=== PATIENT | male | born 1955 | race Caucasian/White ===

== ENCOUNTER 2025-03-19 09:30 | Inpatient (IN) | payer OTHER, MEDICAID ==
[2025-03-19] MEDS ORDERED: Magnesium 2 GM/50 ML BAG (IN WATER) ONE (09:47)
[2025-03-19] MEDS ORDERED: LevoFLOXacin 750 mg/D5W 150 ml Premix Bag ONE (09:47)
[2025-03-19] MEDS ORDERED: Digoxin 0.5 MG/2 ML AMP ONE (09:47)
[2025-03-19] MEDS ORDERED: Rocuronium Bromide 10 MG/ML (10ML VIAL) ONE (09:52)
[2025-03-19] MEDS ORDERED: Etomidate 40 MG (20 mL) VIAL ONE (09:52)
[2025-03-19 09:58] LABS: #Basophils 0.05 10x3/uL (0.0-0.2); #Eosinophils Less than 0.03 10x3/uL (0.0-0.7); #Monocytes 1.09 10x3/uL (0.11-0.59); #Neutrophils 13.06 10x3/uL (1.40-6.50); %Basophils 0.3 % (0.0-1.0); %Eosinophils 0.0 % (0.0-10.0); %Lymphocytes 6.4 % (21.0-51.0); %Monocytes 6.9 % (0.0-10.0); %Neutrophils 83.0 % (42.0-75.0); Hematocrit 40.8 % (42.0-52.0); Hemoglobin 13.1 g/dL (14.0-18.0); Mean Corpuscular Hemoglobin 30.4 pg (27.0-31.0); Mean Corpuscular Volume 94.7 fL (78.0-98.0); Platelet Count 229 10x3/uL (130-400); Red Blood Cell (RBC) Count 4.31 mill/uL (4.70-6.10); White Blood Cell (WBC) Count 15.75 10x3/uL (4.8-10.8)
[2025-03-19] MEDS ORDERED: EPINEPHrine 1 MG/10 ML Abboject SYRINGE ONE (10:03)
[2025-03-19] MEDS ORDERED: KETAMINE 100 MG/ML (5ML VIAL) ONE (10:03)
[2025-03-19] MEDS ORDERED: Iopamidol-370 76% 500 ML MDV (1 ML CHARGE) ONE (10:13)
[2025-03-19 10:18] LABS: Lipase 58 U/L (8-78)
[2025-03-19 10:21] LABS: Acetaminophen Less than 10 mcg/mL (Less than 10); Salicylate Less than 8.0 mg/dL (Less than 8.0)
[2025-03-19 10:24] LABS: Troponin I 0.148 ng/mL (< 0.028)
[2025-03-19 10:26] LABS: ALT (SGPT) 2132 U/L (Less than 45); AST (SGOT) Greater than 4001 U/L (11-34); Albumin 3.2 g/dL (3.1-4.5); Alkaline Phosphatase 104 U/L (40-110); Anion Gap 22 mmol/L (10-20); BUN (Urea Nitrogen) 54 mg/dL (8.4-25.7); Bilirubin, Total 3.2 mg/dL (0.3-1.2); CK (CPK) 1446 U/L (30-200); Calc. Creatinine Clearance 0 mL/min (70-130); Calcium 8.5 mg/dL (7.8-10.44); Carbon Dioxide 10 mmol/L (23-31); Chloride 101 mmol/L (98-107); Globulin 3.0 g/dL (2.4-3.5); Glucose 106 mg/dL (80-115); Potassium 4.8 mmol/L (3.5-5.1); Sodium 128 mmol/L (136-145)
[2025-03-19 10:41] LABS: Analyzer IN Cardio ER; Base Excess (BEa) -16.3 mEq/L (-2.0 to +3.0); CO2 Tension 46.0 mmHg (35.0-45.0); Calcium, Ionized (arterial) 1.20 mmol/L (1.12-1.30); Hematocrit-ABG 45 % (42.0-52.0); Hemoglobin (Hb) 15.2 g/dL (14.0-18.0); O2 Tension (PaO2), arterial 195.5 mmHg (> 80.0); Potassium - ABG Lab 5.14 mmol/L (3.70-5.30)
[2025-03-19 10:48] LABS: Actual Bicarbonate (HCO3a) 13.5 mEq/L (22-28); pH, Arterial 7.084 (7.35-7.45)
[2025-03-19 10:49] LABS: ALV-art Gradient 460.000 mmHg (0-20); Puncture Site Left Radial artery
[2025-03-19] MEDS ORDERED: Sodium Bicarb 50 MEQ/50 ML Abboject 8.4% SYRINGE ONE ×2 (11:02→14:13)
[2025-03-19 11:57] LABS: Cocaine Metabolite Screen Negative (Negative); THC/Cannabinoid Screen PRELIM POSITIVE (Negative); Tricyclic Screen Negative (Negative)
[2025-03-19 12:01] LABS: CAUTI Indications for Culture Pelvic or flank pain; Glucose, Urine (Dipstick) Normal (Negative); Leukocyte Negative Leu/uL (Negative); Protein, Urine (Dipstick) 50 mg/dL (Neg-Trace); RBC/HPF 21-50 HPF (0-3); Specific Gravity, Urine 1.021 (1.002-1.036); WBC/HPF 0-3 HPF (0-3)
[2025-03-19 12:09] LABS: Bacteria/HPF 1+ HPF (None Seen); Sperm/HPF 4+ HPF (None Seen)
[2025-03-19 12:10] LABS: Urine Culture Reflex No No
[2025-03-19] MEDS ORDERED: Calcium Carbonate 500 MG ChewTAB PO PRN (14:02)
[2025-03-19] MEDS ORDERED: Ondansetron PF 4 MG/2 ML Vial IVP PRN (14:02)
[2025-03-19] MEDS ORDERED: Senokot S 8.6-50 MG TAB PO PRN (14:02)
[2025-03-19] MEDS ORDERED: Bisacodyl 10 MG SUPP PR PRN (14:02)
[2025-03-19] MEDS ORDERED: Ventilator Sedation Protocol 1 EACH FS SCH (14:07)
[2025-03-19 14:10] LABS: Analyzer IN Cardio ER; Base Excess (BEa) -20.7 mEq/L (-2.0 to +3.0); CO2 Tension 38.8 mmHg (35.0-45.0); Calcium, Ionized (arterial) 1.12 mmol/L (1.12-1.30); Hematocrit-ABG 42 % (42.0-52.0); Hemoglobin (Hb) 14.4 g/dL (14.0-18.0); O2 Tension (PaO2), arterial 129.0 mmHg (> 80.0); Potassium - ABG Lab 4.91 mmol/L (3.70-5.30)
[2025-03-19 14:14] LABS: Actual Bicarbonate (HCO3a) 9.7 mEq/L (22-28); pH, Arterial 7.017 (7.35-7.45)
[2025-03-19 14:15] LABS: ALV-art Gradient 250.300 mmHg (0-20); Puncture Site Left Brachial artery
[2025-03-19] MEDS ORDERED: Fentanyl BOLUS 100 ML IVPB PRN (15:15)
[2025-03-19] MEDS ORDERED: Propofol BOLUS 1,000 MG/100 ML VIAL IV PRN (15:15)
[2025-03-19] MEDS ORDERED: DISCONTINUE PREVIOUS NARCOTIC PAIN MEDICATIONS AND BENZODIAZEPINES FS SCH (15:15)
[2025-03-19 16:49] LABS: INR-International Normal Ratio 3.2; Prothrombin Time 32.6 sec (12.0-14.7)
[2025-03-19] MEDS: Vancomycin (BATCH) 2.5 GM in Premix 1 BAG IVPB SCH (16:52)
[2025-03-19] MEDS: LOKELMA 10 GM PACKET PER TUBE SCH (16:52)
[2025-03-19] MEDS: Lactulose 20 GM (30 mL) UDCUP PER TUBE SCH (17:01)
[2025-03-19 17:11] LABS: Hep A IgM AB NONREACTIVE (NonReactive); Hep A IgM S/CO 0.32 S/CO (0-0.79); Hep B Core IgM Index 0.08 S/CO (0-0.79); Hep B Surf Ag NONREACTIVE S/CO (NonReactive); Hep C IgG Ab Reflex HepC Qnt S/CO (NonReactive); Hep C Index 15.34 S/CO (0-0.79)
[2025-03-19] MEDS: Lactulose 10 GM/15 ML Oral Solution PR SCH (17:33)
[2025-03-19 17:49] LABS: ALT (SGPT) 2199 U/L (Less than 45); AST (SGOT) Greater than 4001 U/L (11-34); Albumin 2.8 g/dL (3.1-4.5); Alkaline Phosphatase 101 U/L (40-110); Anion Gap 29 mmol/L (10-20); BUN (Urea Nitrogen) 56 mg/dL (8.4-25.7); Bilirubin, Total 2.9 mg/dL (0.3-1.2); Calc. Creatinine Clearance 49 mL/min (70-130); Calcium 7.7 mg/dL (7.8-10.44); Carbon Dioxide 12 mmol/L (23-31); Chloride 97 mmol/L (98-107); Globulin 2.7 g/dL (2.4-3.5); Glucose 111 mg/dL (80-115); Potassium 5.1 mmol/L (3.5-5.1); Sodium 133 mmol/L (136-145)
[2025-03-19] MEDS: WATER IV SCH ×2 (17:52→19:50)
[2025-03-19] MEDS: ACETYLCYSTEINE IV SCH ×2 (17:52→19:50)
[2025-03-19] MEDS: DEXTROSE 5% IV SCH ×2 (17:52→19:50)
[2025-03-19] MEDS: Diltiazem HCl/D5W 125 MG in Premix 1 BAG IVPB SCH (19:19)
[2025-03-19] MEDS: Enoxaparin 100 MG (1 mL) SYRINGE SC SCH (20:35)
[2025-03-19 20:37] LABS: ALT (SGPT) 2254 U/L (Less than 45); AST (SGOT) Greater than 4001 U/L (11-34); Albumin 2.5 g/dL (3.1-4.5); Alkaline Phosphatase 88 U/L (40-110); Anion Gap 26 mmol/L (10-20); BUN (Urea Nitrogen) 52 mg/dL (8.4-25.7); Bilirubin, Total 2.4 mg/dL (0.3-1.2); Calc. Creatinine Clearance 50 mL/min (70-130); Calcium 7.6 mg/dL (7.8-10.44); Carbon Dioxide 14 mmol/L (23-31); Chloride 98 mmol/L (98-107); Globulin 2.7 g/dL (2.4-3.5); Glucose 181 mg/dL (80-115); Potassium 5.0 mmol/L (3.5-5.1); Sodium 133 mmol/L (136-145)
[2025-03-19] MEDS ORDERED: Famotidine/PF 20 mg/2ml Vial SLOW IVP SCH (21:00)
[2025-03-20] MEDS: DEXTROSE 5% IV SCH (00:03)
[2025-03-20] MEDS: WATER IV SCH (00:03)
[2025-03-20] MEDS: ACETYLCYSTEINE IV SCH (00:03)
[2025-03-20] MEDS: Albumin 25% 25 GM (100 mL) BOT IVPB SCH (00:13)
[2025-03-20] MEDS ORDERED: Dextrose 50% Abboject 50 ML SYRINGE SLOW IVP PRN (00:27)
[2025-03-20] MEDS ORDERED: Glucagon 1 MG/ML KIT IM PRN (00:27)
[2025-03-20 04:55] LABS: #Basophils 0.03 10x3/uL (0.0-0.2); #Eosinophils Less than 0.03 10x3/uL (0.0-0.7); #Monocytes 0.66 10x3/uL (0.11-0.59); #Neutrophils 12.78 10x3/uL (1.40-6.50); %Basophils 0.2 % (0.0-1.0); %Eosinophils 0.1 % (0.0-10.0); %Lymphocytes 7.4 % (21.0-51.0); %Monocytes 4.4 % (0.0-10.0); %Neutrophils 85.2 % (42.0-75.0); Hematocrit 36.9 % (42.0-52.0); Hemoglobin 12.4 g/dL (14.0-18.0); Mean Corpuscular Hemoglobin 31.0 pg (27.0-31.0); Mean Corpuscular Volume 92.3 fL (78.0-98.0); Platelet Count 228 10x3/uL (130-400); Red Blood Cell (RBC) Count 4.00 mill/uL (4.70-6.10); White Blood Cell (WBC) Count 15.00 10x3/uL (4.8-10.8)
[2025-03-20 05:13] LABS: Vancomycin, Trough 30.0 ug/mL
[2025-03-20 05:17] LABS: INR-International Normal Ratio 3.3; PTT 45.9 sec (22.9-36.1); Prothrombin Time 34.1 sec (12.0-14.7)
[2025-03-20 05:20] LABS: ALT (SGPT) 2492 U/L (Less than 45); AST (SGOT) Greater than 4001 U/L (11-34); Albumin 2.8 g/dL (3.1-4.5); Alkaline Phosphatase 96 U/L (40-110); Anion Gap 18 mmol/L (10-20); BUN (Urea Nitrogen) 57 mg/dL (8.4-25.7); Bilirubin, Total 2.5 mg/dL (0.3-1.2); CK (CPK) 766 U/L (30-200); Calc. Creatinine Clearance 56 mL/min (70-130); Calcium 7.7 mg/dL (7.8-10.44); Carbon Dioxide 23 mmol/L (23-31); Cardiac Risk 13.2 (Less than 4.5); Chloride 96 mmol/L (98-107); Cholesterol 66 mg/dl (< 200 Desired); Globulin 2.5 g/dL (2.4-3.5); Glucose 148 mg/dL (80-115); HDL Cholesterol 5 mg/dL (>60 Neg Risk); LDL Cholesterol, Calculated 47 mg/dL; Magnesium 2.0 mg/dL (1.6-2.6); Potassium 3.5 mmol/L (3.5-5.1); Sodium 133 mmol/L (136-145); Triglycerides 71 mg/dL (Less than 150)
[2025-03-20] MEDS: Pantoprazole 40 MG VIAL IVP SCH (08:09)
[2025-03-20 11:01] LABS: Actual Bicarbonate (HCO3a) 22.9 mEq/L (22-28); Base Excess (BEa) 1.9 mEq/L (-2.0 to +3.0); CO2 Tension 26.2 mmHg (35.0-45.0); Calcium, Ionized (arterial) 1.02 mmol/L (1.12-1.30); Hematocrit-ABG 39 % (42.0-52.0); Hemoglobin (Hb) 13.2 g/dL (14.0-18.0); O2 Tension (PaO2), arterial 75.6 mmHg (> 80.0); Potassium - ABG Lab 3.26 mmol/L (3.70-5.30); pH, Arterial 7.560 (7.35-7.45)
[2025-03-20 11:02] LABS: ALV-art Gradient 248.150 mmHg (0-20); Puncture Site Right Radial artery
[2025-03-20] MEDS: Lactulose 10 GM/15 ML Oral Solution PR SCH (13:15)
[2025-03-20] MEDS: Vancomycin 1 GM Premix Bag IVPB SCH (23:18)
[2025-03-21 01:36] LABS: #Basophils 0.04 10x3/uL (0.0-0.2); #Eosinophils 0.16 10x3/uL (0.0-0.7); #Monocytes 0.53 10x3/uL (0.11-0.59); #Neutrophils 8.48 10x3/uL (1.40-6.50); %Basophils 0.4 % (0.0-1.0); %Eosinophils 1.6 % (0.0-10.0); %Lymphocytes 8.1 % (21.0-51.0); %Monocytes 5.1 % (0.0-10.0); %Neutrophils 82.3 % (42.0-75.0); Hematocrit 37.7 % (42.0-52.0); Hemoglobin 13.0 g/dL (14.0-18.0); Mean Corpuscular Hemoglobin 31.4 pg (27.0-31.0); Mean Corpuscular Volume 91.1 fL (78.0-98.0); Platelet Count 220 10x3/uL (130-400); Red Blood Cell (RBC) Count 4.14 mill/uL (4.70-6.10); White Blood Cell (WBC) Count 10.31 10x3/uL (4.8-10.8)
[2025-03-21 01:49] LABS: Vancomycin, Random 28.3 ug/mL (See Comment)
[2025-03-21 01:50] LABS: Magnesium 2.1 mg/dL (1.6-2.6)
[2025-03-21 01:51] LABS: ALT (SGPT) 1863 U/L (Less than 45); AST (SGOT) 3411 U/L (11-34); Albumin 3.3 g/dL (3.1-4.5); Alkaline Phosphatase 95 U/L (40-110); Anion Gap 14 mmol/L (10-20); BUN (Urea Nitrogen) 42 mg/dL (8.4-25.7); Bilirubin, Total 3.8 mg/dL (0.3-1.2); Calc. Creatinine Clearance 76 mL/min (70-130); Calcium 7.8 mg/dL (7.8-10.44); Carbon Dioxide 30 mmol/L (23-31); Chloride 94 mmol/L (98-107); Globulin 2.2 g/dL (2.4-3.5); Glucose 90 mg/dL (80-115); Potassium 2.9 mmol/L (3.5-5.1); Sodium 135 mmol/L (136-145)
[2025-03-21] MEDS ORDERED: Electrolyte Replacement Protocol 1 EACH FS PRN (02:06)
[2025-03-21] MEDS: Potassium Chloride 40 MEQ in Premix 1 BAG IVPB SCH (03:13)
[2025-03-21 04:50] LABS: INR-International Normal Ratio 2.4; Prothrombin Time 26.0 sec (12.0-14.7)
[2025-03-21 04:51] LABS: PTT 45.9 sec (22.9-36.1)
[2025-03-21 07:10] LABS: Actual Bicarbonate (HCO3a) 27.6 mEq/L (22-28); Base Excess (BEa) 5.2 mEq/L (-2.0 to +3.0); CO2 Tension 33.9 mmHg (35.0-45.0); Calcium, Ionized (arterial) 1.07 mmol/L (1.12-1.30); Hematocrit-ABG 41 % (42.0-52.0); Hemoglobin (Hb) 14.1 g/dL (14.0-18.0); O2 Tension (PaO2), arterial 72.1 mmHg (> 80.0); Potassium - ABG Lab 4.06 mmol/L (3.70-5.30); pH, Arterial 7.529 (7.35-7.45)
[2025-03-21 07:11] LABS: ALV-art Gradient 242.025 mmHg (0-20); Puncture Site Right Brachial art
[2025-03-21 11:45] LABS: Potassium 3.4 mmol/L (3.5-5.1)
[2025-03-21] MEDS: Potassium Bicarbonate/Cit Ac 20 MEQ TAB PER TUBE SCH (15:09)
[2025-03-21] MEDS ORDERED: Albuterol 2.5 MG (3 mL) NEB EZPAP PRN (15:10)
[2025-03-21] MEDS: Albuterol 2.5 MG (3 mL) NEB EZPAP SCH (16:54)
[2025-03-21] MEDS: DC Sedation Protocol FS ONE (17:50)
[2025-03-21 19:32] LABS: #Basophils Less than 0.03 10x3/uL (0.0-0.2); #Eosinophils Less than 0.03 10x3/uL (0.0-0.7); #Monocytes 0.46 10x3/uL (0.11-0.59); #Neutrophils 7.87 10x3/uL (1.40-6.50); %Basophils 0.1 % (0.0-1.0); %Eosinophils 0.1 % (0.0-10.0); %Lymphocytes 4.8 % (21.0-51.0); %Monocytes 5.2 % (0.0-10.0); %Neutrophils 88.1 % (42.0-75.0); Hematocrit 38.2 % (42.0-52.0); Hemoglobin 12.6 g/dL (14.0-18.0); Mean Corpuscular Hemoglobin 30.4 pg (27.0-31.0); Mean Corpuscular Volume 92.0 fL (78.0-98.0); Platelet Count 193 10x3/uL (130-400); Red Blood Cell (RBC) Count 4.15 mill/uL (4.70-6.10); White Blood Cell (WBC) Count 8.93 10x3/uL (4.8-10.8)
[2025-03-21 19:50] LABS: ALT (SGPT) 1428 U/L (Less than 45); AST (SGOT) 1867 U/L (11-34); Albumin 2.9 g/dL (3.1-4.5); Alkaline Phosphatase 93 U/L (40-110); Anion Gap 13 mmol/L (10-20); BUN (Urea Nitrogen) 35 mg/dL (8.4-25.7); Bilirubin, Direct 3.1 mg/dL (0.1-0.3); Bilirubin, Total 4.9 mg/dL (0.3-1.2); Calc. Creatinine Clearance 111 mL/min (70-130); Calcium 7.9 mg/dL (7.8-10.44); Carbon Dioxide 28 mmol/L (23-31); Chloride 98 mmol/L (98-107); Globulin 2.3 g/dL (2.4-3.5); Glucose 124 mg/dL (80-115); Magnesium 1.9 mg/dL (1.6-2.6); Potassium 3.3 mmol/L (3.5-5.1); Sodium 136 mmol/L (136-145)
[2025-03-21] MEDS: Magnesium 2 GM/50 ML(in water) 2 GM in Premix 1 BAG IVPB SCH (20:51)
[2025-03-21] MEDS: D5 1/2 NS w/20 mEq KCL 1,000 ML IV SCH (20:52)
[2025-03-21] MEDS ORDERED: Phenol 177 ML BOT PO PRN (21:19)
[2025-03-21] MEDS: Potassium Chloride 20 MEQ in Premix 1 BAG IVPB SCH (21:42)
[2025-03-21 23:36] LABS: HCV RNA, log10 4.958 (.); Hep C PCR-Quant 90700 IU/mL (.)
[2025-03-22] MEDS ORDERED: Etomidate 40 MG (20 mL) VIAL ONE (01:45)
[2025-03-22] MEDS ORDERED: Rocuronium Bromide 10 MG/ML (10ML VIAL) ONE (01:45)
[2025-03-22] MEDS: Etomidate 40 MG (20 mL) VIAL IVP SCH (01:50)
[2025-03-22] MEDS ORDERED: DISCONTINUE PREVIOUS NARCOTIC PAIN MEDICATIONS AND BENZODIAZEPINES FS SCH (02:15)
[2025-03-22] MEDS ORDERED: Fentanyl BOLUS 100 ML IVPB PRN (02:15)
[2025-03-22] MEDS ORDERED: Propofol BOLUS 1,000 MG/100 ML VIAL IV PRN (02:15)
[2025-03-22] MEDS: Rocuronium Bromide 10 MG/ML (10ML VIAL) IVP SCH (02:19)
[2025-03-22] MEDS: NOREPINEPHRINE 8 MG/250 ML-D5W 250 ML ONE (02:23)
[2025-03-22] MEDS: Ventilator Sedation Protocol 1 EACH FS ONE (02:25)
[2025-03-22 03:06] LABS: #Basophils 0.03 10x3/uL (0.0-0.2); #Eosinophils 0.03 10x3/uL (0.0-0.7); #Monocytes 0.64 10x3/uL (0.11-0.59); #Neutrophils 7.36 10x3/uL (1.40-6.50); %Basophils 0.3 % (0.0-1.0); %Eosinophils 0.3 % (0.0-10.0); %Lymphocytes 6.6 % (21.0-51.0); %Monocytes 7.3 % (0.0-10.0); %Neutrophils 83.8 % (42.0-75.0); Hematocrit 42.6 % (42.0-52.0); Hemoglobin 13.9 g/dL (14.0-18.0); Mean Corpuscular Hemoglobin 30.4 pg (27.0-31.0); Mean Corpuscular Volume 93.2 fL (78.0-98.0); Platelet Count 200 10x3/uL (130-400); Red Blood Cell (RBC) Count 4.57 mill/uL (4.70-6.10); White Blood Cell (WBC) Count 8.79 10x3/uL (4.8-10.8)
[2025-03-22 03:21] LABS: INR-International Normal Ratio 1.8; PTT 39.5 sec (22.9-36.1); Prothrombin Time 20.9 sec (12.0-14.7)
[2025-03-22 03:32] LABS: Vancomycin, Random 22.4 ug/mL (See Comment)
[2025-03-22 03:35] LABS: ALT (SGPT) 1473 U/L (Less than 45); AST (SGOT) 1711 U/L (11-34); Albumin 3.3 g/dL (3.1-4.5); Alkaline Phosphatase 106 U/L (40-110); Anion Gap 16 mmol/L (10-20); BUN (Urea Nitrogen) 35 mg/dL (8.4-25.7); Bilirubin, Total 6.6 mg/dL (0.3-1.2); Calc. Creatinine Clearance 101 mL/min (70-130); Calcium 8.2 mg/dL (7.8-10.44); Carbon Dioxide 24 mmol/L (23-31); Chloride 97 mmol/L (98-107); Globulin 2.6 g/dL (2.4-3.5); Glucose 106 mg/dL (80-115); Magnesium 2.3 mg/dL (1.6-2.6); Potassium 3.8 mmol/L (3.5-5.1); Sodium 133 mmol/L (136-145)
[2025-03-22 07:48] LABS: Actual Bicarbonate (HCO3a) 24.4 mEq/L (22-28); Base Excess (BEa) 1.9 mEq/L (-2.0 to +3.0); CO2 Tension 32.0 mmHg (35.0-45.0); Calcium, Ionized (arterial) 1.07 mmol/L (1.12-1.30); Hematocrit-ABG 40 % (42.0-52.0); Hemoglobin (Hb) 13.5 g/dL (14.0-18.0); O2 Tension (PaO2), arterial 60.6 mmHg (> 80.0); Potassium - ABG Lab 3.65 mmol/L (3.70-5.30); pH, Arterial 7.500 (7.35-7.45)
[2025-03-22 07:52] LABS: ALV-art Gradient 184.600 mmHg (0-20); Puncture Site Right Brachial art
[2025-03-22] MEDS: Potassium Bicarbonate/Cit Ac 20 MEQ TAB PER TUBE SCH (07:57)
[2025-03-22] MEDS: D5 0.9% NS w/ 20 mEq KCl 1,000 ML IV SCH (07:59)
[2025-03-22] MEDS: Vancomycin 1 GM Premix Bag IVPB SCH (09:21)
[2025-03-22] MEDS: Folic Acid 1 MG TAB PO SCH (09:21)
[2025-03-22] MEDS: Multivit, Therapeutic 1 TAB PO SCH (09:21)
[2025-03-22] MEDS: QUEtiapine 25 MG TAB PO SCH ×2 (09:57→20:21)
[2025-03-22] MEDS: Enoxaparin 100 MG (1 mL) SYRINGE SC SCH ×2 (09:57→11:40)
[2025-03-22] MEDS: Furosemide 20 MG (2 mL) VIAL SLOW IVP SCH (11:47)
[2025-03-22] MEDS: Lactulose 20 GM (30 mL) UDCUP PO SCH (15:17)
[2025-03-23 04:20] LABS: #Basophils 0.05 10x3/uL (0.0-0.2); #Eosinophils 0.27 10x3/uL (0.0-0.7); #Monocytes 0.73 10x3/uL (0.11-0.59); #Neutrophils 6.07 10x3/uL (1.40-6.50); %Basophils 0.6 % (0.0-1.0); %Eosinophils 3.3 % (0.0-10.0); %Lymphocytes 12.2 % (21.0-51.0); %Monocytes 8.8 % (0.0-10.0); %Neutrophils 73.4 % (42.0-75.0); Hematocrit 39.4 % (42.0-52.0); Hemoglobin 12.9 g/dL (14.0-18.0); Mean Corpuscular Hemoglobin 30.3 pg (27.0-31.0); Mean Corpuscular Volume 92.5 fL (78.0-98.0); Platelet Count 176 10x3/uL (130-400); Red Blood Cell (RBC) Count 4.26 mill/uL (4.70-6.10); White Blood Cell (WBC) Count 8.27 10x3/uL (4.8-10.8)
[2025-03-23 04:32] LABS: Vancomycin, Random 22.4 ug/mL (See Comment)
[2025-03-23 04:35] LABS: ALT (SGPT) 990 U/L (Less than 45); AST (SGOT) 832 U/L (11-34); Albumin 2.6 g/dL (3.1-4.5); Alkaline Phosphatase 88 U/L (40-110); Anion Gap 12 mmol/L (10-20); BUN (Urea Nitrogen) 32 mg/dL (8.4-25.7); Bilirubin, Total 6.4 mg/dL (0.3-1.2); Calc. Creatinine Clearance 92 mL/min (70-130); Calcium 7.9 mg/dL (7.8-10.44); Carbon Dioxide 27 mmol/L (23-31); Chloride 99 mmol/L (98-107); Globulin 2.4 g/dL (2.4-3.5); Glucose 120 mg/dL (80-115); Magnesium 2.1 mg/dL (1.6-2.6); Potassium 3.0 mmol/L (3.5-5.1); Sodium 135 mmol/L (136-145)
[2025-03-23 04:45] LABS: INR-International Normal Ratio 1.5; Prothrombin Time 18.4 sec (12.0-14.7)
[2025-03-23 04:46] LABS: PTT 50.2 sec (22.9-36.1)
[2025-03-23] MEDS: Potassium Bicarbonate/Cit Ac 20 MEQ TAB PER TUBE SCH (09:27)
[2025-03-23] MEDS: QUEtiapine 25 MG TAB PO SCH (09:28)
[2025-03-23 20:23] LABS: Potassium 4.0 mmol/L (3.5-5.1)
[2025-03-24 04:37] LABS: INR-International Normal Ratio 1.4; Prothrombin Time 17.1 sec (12.0-14.7)
[2025-03-24 04:38] LABS: PTT 49.5 sec (22.9-36.1)
[2025-03-24 04:40] LABS: ALT (SGPT) 792 U/L (Less than 45); AST (SGOT) 543 U/L (11-34); Albumin 2.6 g/dL (3.1-4.5); Alkaline Phosphatase 97 U/L (40-110); Anion Gap 14 mmol/L (10-20); BUN (Urea Nitrogen) 26 mg/dL (8.4-25.7); Bilirubin, Total 4.3 mg/dL (0.3-1.2); Calc. Creatinine Clearance 93 mL/min (70-130); Calcium 8.2 mg/dL (7.8-10.44); Carbon Dioxide 28 mmol/L (23-31); Chloride 103 mmol/L (98-107); Globulin 2.9 g/dL (2.4-3.5); Glucose 121 mg/dL (80-115); Potassium 3.8 mmol/L (3.5-5.1); Sodium 141 mmol/L (136-145)
[2025-03-24] MEDS: NOREPINEPHRINE 8 MG/250 ML-D5W 250 ML IVPB SCH (08:29)
[2025-03-24] MEDS: PNEUMOC 20-VAL CONJ-DIP CRM/PF 0.5 ML SYRINGE IM ONE (10:08)
[2025-03-24] MEDS: Metoclopramide HCl 10 MG (2 mL) VIAL IVP SCH (15:41)
[2025-03-24] MEDS: Thiamine 100 MG TAB PO SCH (20:13)
[2025-03-25 04:53] LABS: INR-International Normal Ratio 1.3; PTT 50.1 sec (22.9-36.1); Prothrombin Time 16.6 sec (12.0-14.7)
[2025-03-25 05:00] LABS: ALT (SGPT) 598 U/L (Less than 45); AST (SGOT) 311 U/L (11-34); Albumin 2.6 g/dL (3.1-4.5); Alkaline Phosphatase 97 U/L (40-110); Anion Gap 14 mmol/L (10-20); BUN (Urea Nitrogen) 28 mg/dL (8.4-25.7); Bilirubin, Total 3.4 mg/dL (0.3-1.2); Calc. Creatinine Clearance 98 mL/min (70-130); Calcium 8.0 mg/dL (7.8-10.44); Carbon Dioxide 28 mmol/L (23-31); Chloride 103 mmol/L (98-107); Globulin 2.9 g/dL (2.4-3.5); Glucose 114 mg/dL (80-115); Potassium 3.6 mmol/L (3.5-5.1); Sodium 141 mmol/L (136-145)
[2025-03-25] MEDS: Furosemide 40 MG (4 mL) VIAL SLOW IVP SCH (10:16)
[2025-03-25] MEDS: DC Sedation Protocol FS ONE (18:19)
[2025-03-25 18:28] LABS: Actual Bicarbonate (HCO3a) 22.6 mEq/L (22-28); Base Excess (BEa) 1.9 mEq/L (-2.0 to +3.0); CO2 Tension 26.0 mmHg (35.0-45.0); Calcium, Ionized (arterial) 1.10 mmol/L (1.12-1.30); Hematocrit-ABG 44 % (42.0-52.0); Hemoglobin (Hb) 15.1 g/dL (14.0-18.0); O2 Tension (PaO2), arterial 60.9 mmHg (> 80.0); Potassium - ABG Lab 3.84 mmol/L (3.70-5.30); pH, Arterial 7.557 (7.35-7.45)
[2025-03-25 18:29] LABS: ALV-art Gradient 56.330 mmHg (0-20); Puncture Site Right Radial artery
[2025-03-26 09:11] LABS: Actual Bicarbonate (HCO3a) 26.6 mEq/L (22-28); Base Excess (BEa) 2.7 mEq/L (-2.0 to +3.0); CO2 Tension 38.3 mmHg (35.0-45.0); Calcium, Ionized (arterial) 1.13 mmol/L (1.12-1.30); Hematocrit-ABG 43 % (42.0-52.0); Hemoglobin (Hb) 14.7 g/dL (14.0-18.0); O2 Tension (PaO2), arterial 284.4 mmHg (> 80.0); Potassium - ABG Lab 4.02 mmol/L (3.70-5.30); pH, Arterial 7.459 (7.35-7.45)
[2025-03-26 09:12] LABS: ALV-art Gradient 304.925 mmHg (0-20); Puncture Site Right Radial artery
[2025-03-26] MEDS: Furosemide 40 MG (4 mL) VIAL SLOW IVP SCH (09:31)
[2025-03-26 09:43] LABS: #Basophils 0.08 10x3/uL (0.0-0.2); #Eosinophils 0.11 10x3/uL (0.0-0.7); #Monocytes 0.94 10x3/uL (0.11-0.59); #Neutrophils 6.84 10x3/uL (1.40-6.50); %Basophils 0.9 % (0.0-1.0); %Eosinophils 1.2 % (0.0-10.0); %Lymphocytes 11.0 % (21.0-51.0); %Monocytes 10.2 % (0.0-10.0); %Neutrophils 73.9 % (42.0-75.0); Hematocrit 41.8 % (42.0-52.0); Hemoglobin 14.1 g/dL (14.0-18.0); Mean Corpuscular Hemoglobin 30.2 pg (27.0-31.0); Mean Corpuscular Volume 89.5 fL (78.0-98.0); Platelet Count 179 10x3/uL (130-400); Red Blood Cell (RBC) Count 4.67 mill/uL (4.70-6.10); White Blood Cell (WBC) Count 9.25 10x3/uL (4.8-10.8)
[2025-03-26 09:57] LABS: Anion Gap 16 mmol/L (10-20); BUN (Urea Nitrogen) 33 mg/dL (8.4-25.7); Calc. Creatinine Clearance 107 mL/min (70-130); Calcium 8.5 mg/dL (7.8-10.44); Carbon Dioxide 27 mmol/L (23-31); Chloride 103 mmol/L (98-107); Glucose 109 mg/dL (80-115); Potassium 4.3 mmol/L (3.5-5.1); Sodium 142 mmol/L (136-145)
[2025-03-26] MEDS: Spironolactone 25 MG TAB PO SCH (10:11)
[2025-03-27 04:23] LABS: #Basophils 0.07 10x3/uL (0.0-0.2); #Eosinophils 0.10 10x3/uL (0.0-0.7); #Monocytes 1.15 10x3/uL (0.11-0.59); #Neutrophils 7.41 10x3/uL (1.40-6.50); %Basophils 0.7 % (0.0-1.0); %Eosinophils 1.0 % (0.0-10.0); %Lymphocytes 12.4 % (21.0-51.0); %Monocytes 11.2 % (0.0-10.0); %Neutrophils 72.0 % (42.0-75.0); Hematocrit 42.4 % (42.0-52.0); Hemoglobin 13.5 g/dL (14.0-18.0); Mean Corpuscular Hemoglobin 29.2 pg (27.0-31.0); Mean Corpuscular Volume 91.8 fL (78.0-98.0); Platelet Count 216 10x3/uL (130-400); Red Blood Cell (RBC) Count 4.62 mill/uL (4.70-6.10); White Blood Cell (WBC) Count 10.29 10x3/uL (4.8-10.8)
[2025-03-27 04:49] LABS: Anion Gap 18 mmol/L (10-20); BUN (Urea Nitrogen) 35 mg/dL (8.4-25.7); Calc. Creatinine Clearance 88 mL/min (70-130); Calcium 8.4 mg/dL (7.8-10.44); Carbon Dioxide 27 mmol/L (23-31); Chloride 102 mmol/L (98-107); Glucose 101 mg/dL (80-115); Potassium 3.7 mmol/L (3.5-5.1); Sodium 143 mmol/L (136-145)
[2025-03-27] MEDS: Spironolactone 25 MG TAB PO SCH (09:56)
[2025-03-27] MEDS ORDERED: Diltiazem HCl/D5W 125 MG in Premix 1 BAG IVPB SCH (17:15)
[2025-03-27] MEDS: dilTIAZem 25 MG/5 ML VIAL SLOW IVP SCH (17:42)
[2025-03-27] MEDS: Diltiazem HCl/D5W 125 MG in Premix 1 BAG IVPB SCH (17:43)
[2025-03-27] MEDS: dilTIAZem 25 MG/5 ML VIAL ONE (17:44)
[2025-03-27 18:47] LABS: Magnesium 1.9 mg/dL (1.6-2.6)
[2025-03-27] MEDS: Magnesium 2 GM/50 ML(in water) 2 GM in Premix 1 BAG IVPB SCH (20:11)
[2025-03-28 04:21] LABS: #Basophils 0.09 10x3/uL (0.0-0.2); #Eosinophils 0.25 10x3/uL (0.0-0.7); #Monocytes 1.14 10x3/uL (0.11-0.59); #Neutrophils 7.79 10x3/uL (1.40-6.50); %Basophils 0.8 % (0.0-1.0); %Eosinophils 2.3 % (0.0-10.0); %Lymphocytes 12.1 % (21.0-51.0); %Monocytes 10.4 % (0.0-10.0); %Neutrophils 71.1 % (42.0-75.0); Hematocrit 39.4 % (42.0-52.0); Hemoglobin 12.5 g/dL (14.0-18.0); Mean Corpuscular Hemoglobin 29.8 pg (27.0-31.0); Mean Corpuscular Volume 94.0 fL (78.0-98.0); Platelet Count 207 10x3/uL (130-400); Red Blood Cell (RBC) Count 4.19 mill/uL (4.70-6.10); White Blood Cell (WBC) Count 10.96 10x3/uL (4.8-10.8)
[2025-03-28 04:39] LABS: ALT (SGPT) 263 U/L (Less than 45); AST (SGOT) 119 U/L (11-34); Albumin 2.6 g/dL (3.1-4.5); Alkaline Phosphatase 78 U/L (40-110); Anion Gap 15 mmol/L (10-20); BUN (Urea Nitrogen) 27 mg/dL (8.4-25.7); Bilirubin, Total 2.7 mg/dL (0.3-1.2); Calc. Creatinine Clearance 100 mL/min (70-130); Calcium 7.9 mg/dL (7.8-10.44); Carbon Dioxide 26 mmol/L (23-31); Chloride 105 mmol/L (98-107); Globulin 2.9 g/dL (2.4-3.5); Glucose 98 mg/dL (80-115); Potassium 3.4 mmol/L (3.5-5.1); Sodium 143 mmol/L (136-145)
[2025-03-28] MEDS: Potassium Chloride 20 MEQ in Premix 1 BAG IVPB SCH ×2 (08:58→21:11)
[2025-03-28] MEDS: Digoxin 0.5 MG/2 ML AMP SLOW IVP SCH (09:47)
[2025-03-28 16:47] LABS: Potassium 3.5 mmol/L (3.5-5.1)
[2025-03-28] MEDS: Acetaminophen 500 MG TAB PO PRN (18:08)
[2025-03-28 18:22] VITALS: BMI 27.9
[2025-03-28] MEDS: Potassium Bicarbonate/Cit Ac 20 MEQ TAB PER TUBE SCH (18:33)
[2025-03-29 04:35] LABS: #Basophils 0.06 10x3/uL (0.0-0.2); #Eosinophils 0.10 10x3/uL (0.0-0.7); #Monocytes 1.13 10x3/uL (0.11-0.59); #Neutrophils 10.29 10x3/uL (1.40-6.50); %Basophils 0.5 % (0.0-1.0); %Eosinophils 0.8 % (0.0-10.0); %Lymphocytes 8.8 % (21.0-51.0); %Monocytes 8.7 % (0.0-10.0); %Neutrophils 78.9 % (42.0-75.0); Hematocrit 43.5 % (42.0-52.0); Hemoglobin 13.8 g/dL (14.0-18.0); Mean Corpuscular Hemoglobin 29.9 pg (27.0-31.0); Mean Corpuscular Volume 94.2 fL (78.0-98.0); Platelet Count 267 10x3/uL (130-400); Red Blood Cell (RBC) Count 4.62 mill/uL (4.70-6.10); White Blood Cell (WBC) Count 13.02 10x3/uL (4.8-10.8)
[2025-03-29 05:18] LABS: Anion Gap 16 mmol/L (10-20); BUN (Urea Nitrogen) 17 mg/dL (8.4-25.7); Calc. Creatinine Clearance 147 mL/min (70-130); Calcium 8.1 mg/dL (7.8-10.44); Carbon Dioxide 21 mmol/L (23-31); Chloride 106 mmol/L (98-107); Glucose 115 mg/dL (80-115); Potassium 3.7 mmol/L (3.5-5.1); Sodium 139 mmol/L (136-145)
[2025-03-29] MEDS: Metoprolol Tartrate 5 MG (5 mL) VIAL IVP SCH (07:24)
[2025-03-29] MEDS: Digoxin 0.5 MG/2 ML AMP SLOW IVP SCH (07:42)
[2025-03-29] MEDS: Apixaban 5 MG TAB PO SCH (07:54)
[2025-03-29] MEDS: Furosemide 20 MG (2 mL) VIAL SLOW IVP SCH (09:30)
[2025-03-30 04:20] LABS: #Basophils 0.06 10x3/uL (0.0-0.2); #Eosinophils 0.07 10x3/uL (0.0-0.7); #Monocytes 0.98 10x3/uL (0.11-0.59); #Neutrophils 9.53 10x3/uL (1.40-6.50); %Basophils 0.5 % (0.0-1.0); %Eosinophils 0.6 % (0.0-10.0); %Lymphocytes 8.2 % (21.0-51.0); %Monocytes 8.2 % (0.0-10.0); %Neutrophils 80.1 % (42.0-75.0); Hematocrit 43.3 % (42.0-52.0); Hemoglobin 14.1 g/dL (14.0-18.0); Mean Corpuscular Hemoglobin 29.8 pg (27.0-31.0); Mean Corpuscular Volume 91.5 fL (78.0-98.0); Platelet Count 276 10x3/uL (130-400); Red Blood Cell (RBC) Count 4.73 mill/uL (4.70-6.10); White Blood Cell (WBC) Count 11.91 10x3/uL (4.8-10.8)
[2025-03-30 04:56] LABS: Digoxin 0.47 ng/mL (0.8-2.0)
[2025-03-30 05:01] LABS: ALT (SGPT) 189 U/L (Less than 45); AST (SGOT) 71 U/L (11-34); Albumin 3.0 g/dL (3.1-4.5); Alkaline Phosphatase 95 U/L (40-110); Anion Gap 18 mmol/L (10-20); BUN (Urea Nitrogen) 14 mg/dL (8.4-25.7); Bilirubin, Total 3.3 mg/dL (0.3-1.2); Calc. Creatinine Clearance 143 mL/min (70-130); Calcium 8.5 mg/dL (7.8-10.44); Carbon Dioxide 20 mmol/L (23-31); Chloride 106 mmol/L (98-107); Globulin 3.3 g/dL (2.4-3.5); Glucose 85 mg/dL (80-115); Potassium 3.9 mmol/L (3.5-5.1); Sodium 140 mmol/L (136-145)
[2025-03-30] MEDS: Spironolactone 25 MG TAB PO SCH (08:43)
[2025-03-30] MEDS: Pantoprazole 40 MG DR.TAB PO SCH (08:45)
[2025-03-30] MEDS: dilTIAZem 30 MG TAB PO PRN (12:55)
[2025-03-30] MEDS: dilTIAZem 30 MG TAB PO SCH (17:45)
[2025-03-30] MEDS: diphenhydrAMINE 50 MG/ML VIAL IVP SCH (23:52)
[2025-03-31 04:49] LABS: #Basophils 0.07 10x3/uL (0.0-0.2); #Eosinophils 0.19 10x3/uL (0.0-0.7); #Monocytes 0.85 10x3/uL (0.11-0.59); #Neutrophils 6.88 10x3/uL (1.40-6.50); %Basophils 0.8 % (0.0-1.0); %Eosinophils 2.1 % (0.0-10.0); %Lymphocytes 11.2 % (21.0-51.0); %Monocytes 9.2 % (0.0-10.0); %Neutrophils 74.5 % (42.0-75.0); Hematocrit 40.4 % (42.0-52.0); Hemoglobin 13.1 g/dL (14.0-18.0); Mean Corpuscular Hemoglobin 29.8 pg (27.0-31.0); Mean Corpuscular Volume 91.8 fL (78.0-98.0); Platelet Count 264 10x3/uL (130-400); Red Blood Cell (RBC) Count 4.40 mill/uL (4.70-6.10); White Blood Cell (WBC) Count 9.22 10x3/uL (4.8-10.8)
[2025-03-31 05:15] LABS: ALT (SGPT) 136 U/L (Less than 45); AST (SGOT) 59 U/L (11-34); Albumin 2.6 g/dL (3.1-4.5); Alkaline Phosphatase 73 U/L (40-110); Anion Gap 16 mmol/L (10-20); BUN (Urea Nitrogen) 20 mg/dL (8.4-25.7); Bilirubin, Total 2.5 mg/dL (0.3-1.2); Calc. Creatinine Clearance 156 mL/min (70-130); Calcium 8.2 mg/dL (7.8-10.44); Carbon Dioxide 20 mmol/L (23-31); Chloride 108 mmol/L (98-107); Globulin 3.0 g/dL (2.4-3.5); Glucose 79 mg/dL (80-115); Magnesium 1.8 mg/dL (1.6-2.6); Potassium 3.5 mmol/L (3.5-5.1); Sodium 140 mmol/L (136-145)
[2025-03-31 05:36] VITALS: BMI 24.5
[2025-03-31] MEDS: Magnesium 2 GM/50 ML(in water) 2 GM in Premix 1 BAG IVPB SCH (05:58)
[2025-03-31] MEDS: QUEtiapine 25 MG TAB PO SCH (10:03)
[2025-03-31] MEDS: dilTIAZem 30 MG TAB PO SCH (15:06)
[2025-04-01 05:07] LABS: Digoxin 0.25 ng/mL (0.8-2.0)
[2025-04-01] MEDS: Digoxin 0.125 MG TAB PO SCH (08:40)
[2025-04-01] MEDS: dilTIAZem 30 MG TAB PO SCH (17:34)
[2025-04-02 15:10] VITALS: BP 132/81; TEMP 98.1
== END 2025-04-02 18:28 | disposition home or self-care (01) | DRG 870 ==
LOC: ERS 09:30 → SUATTDRO 09:30 → CCU 14:04 → IMCU/EMU 03-28 12:57 → 2NO 04-01 18:25
PROVIDERS: ADMIT Internal Medicine; ATTEND Hospitalist
PROC: 0DH67UZ Insertion of Feeding Device into Stomach, Via Natural or Artificial Opening (ICD-10-PCS; principal; 2025-03-19)
PROC: 4A13XR1 Monitoring of Arterial Saturation, Peripheral, External Approach (ICD-10-PCS; 2025-03-19)
PROC: 0BH17EZ Insertion of Endotracheal Airway into Trachea, Via Natural or Artificial Opening (ICD-10-PCS; 2025-03-19)
PROC: 5A1955Z Respiratory Ventilation, Greater than 96 Consecutive Hours (ICD-10-PCS; 2025-03-19)
PROC: 3E033XZ Introduction of Vasopressor into Peripheral Vein, Percutaneous Approach (ICD-10-PCS; 2025-03-19)
PROC: 3E03329 Introduction of Other Anti-infective into Peripheral Vein, Percutaneous Approach (ICD-10-PCS; 2025-03-19)
PROC: 30233J1 Transfusion of Nonautologous Serum Albumin into Peripheral Vein, Percutaneous Approach (ICD-10-PCS; 2025-03-19)
PROC: 0T9B70Z Drainage of Bladder with Drainage Device, Via Natural or Artificial Opening (ICD-10-PCS; 2025-03-20)
PROC: 5A0935A Assistance with Respiratory Ventilation, Less than 24 Consecutive Hours, High Flow/Velocity Cannula (ICD-10-PCS; 2025-03-25)
DX: A41.9 Sepsis, unspecified organism (principal); G92.8 Other toxic encephalopathy; J96.01 Acute respiratory failure with hypoxia; J96.02 Acute respiratory failure with hypercapnia; K72.00 Acute and subacute hepatic failure without coma; I50.21 Acute systolic (congestive) heart failure; R65.21 Severe sepsis with septic shock; J18.9 Pneumonia, unspecified organism; M62.82 Rhabdomyolysis; E87.20 Acidosis, unspecified; N17.9 Acute kidney failure, unspecified; E87.1 Hypo-osmolality and hyponatremia; N12 Tubulo-interstitial nephritis, not specified as acute or chronic; I50.20 Unspecified systolic (congestive) heart failure; E87.3 Alkalosis; I42.9 Cardiomyopathy, unspecified; N39.0 Urinary tract infection, site not specified; I48.91 Unspecified atrial fibrillation; F19.10 Other psychoactive substance abuse, uncomplicated; J44.9 Chronic obstructive pulmonary disease, unspecified; R79.89 Other specified abnormal findings of blood chemistry; N18.9 Chronic kidney disease, unspecified; F10.90 Alcohol use, unspecified, uncomplicated; E87.5 Hyperkalemia; E87.6 Hypokalemia; R31.21 Asymptomatic microscopic hematuria
CPT/HCPCS: 31500; 36415; 36416; 36556; 36600; 71045; 71275; 74177; 76705; 80048; 80053; 80061; 80074; 80162; 80202; 80306; 80307; 81001; 82140; 82248; 82550; 82805; 83036; 83605; 83690; 83735; 83880; 84100; 84145; 84443; 85025; 85610; 85730; 87086; 87522; 93005; 93306; 94002; 94003; 94640; 94660; 96365; 96366; 96374; 96375; 96376; 99292; J0132; J0165; J1160; J1200; J1630; J1644; J1650; J1815; J1940; J1956; J2060; J2250; J2470; J2543; J2704; J2765; J3010; J3373; J3411; J3475; J3480; J3486; J7030; J7050; J7070; J7611; J7620; J7626; P9047; Q9967

== ENCOUNTER 2025-04-03 11:33 | Emergency (ER) | payer OTHER, MEDICAID ==
[2025-04-03 12:08] LABS: #Basophils 0.08 10x3/uL (0.0-0.2); #Eosinophils 0.18 10x3/uL (0.0-0.7); #Monocytes 0.91 10x3/uL (0.11-0.59); #Neutrophils 6.39 10x3/uL (1.40-6.50); %Basophils 0.9 % (0.0-1.0); %Eosinophils 2.1 % (0.0-10.0); %Lymphocytes 11.4 % (21.0-51.0); %Monocytes 10.4 % (0.0-10.0); %Neutrophils 73.3 % (42.0-75.0); Hematocrit 43.3 % (42.0-52.0); Hemoglobin 14.2 g/dL (14.0-18.0); Mean Corpuscular Hemoglobin 30.1 pg (27.0-31.0); Mean Corpuscular Volume 91.7 fL (78.0-98.0); Platelet Count 323 10x3/uL (130-400); Red Blood Cell (RBC) Count 4.72 mill/uL (4.70-6.10); White Blood Cell (WBC) Count 8.72 10x3/uL (4.8-10.8)
[2025-04-03 12:28] LABS: ALT (SGPT) 116 U/L (Less than 45); AST (SGOT) 80 U/L (11-34); Albumin 3.4 g/dL (3.1-4.5); Alkaline Phosphatase 102 U/L (40-110); Anion Gap 16 mmol/L (10-20); BUN (Urea Nitrogen) 23 mg/dL (8.4-25.7); Bilirubin, Total 1.9 mg/dL (0.3-1.2); Calc. Creatinine Clearance 0 mL/min (70-130); Calcium 9.2 mg/dL (7.8-10.44); Carbon Dioxide 21 mmol/L (23-31); Chloride 105 mmol/L (98-107); Globulin 3.7 g/dL (2.4-3.5); Glucose 98 mg/dL (80-115); Potassium 4.4 mmol/L (3.5-5.1); Sodium 138 mmol/L (136-145)
[2025-04-03] MEDS ORDERED: Digoxin 0.125 MG TAB ONE (12:38)
[2025-04-03] MEDS ORDERED: Acetaminophen 500 MG TAB ONE (12:38)
[2025-04-03] MEDS ORDERED: Folic Acid 1 MG TAB ONE (12:38)
[2025-04-03 12:39] LABS: Bacteria/HPF None Seen HPF (None Seen); CAUTI Indications for Culture Dysuria,urgency,freq; Glucose, Urine (Dipstick) 500 mg/dL (Negative); Leukocyte Negative Leu/uL (Negative); Protein, Urine (Dipstick) Negative (Neg-Trace); RBC/HPF 0-3 HPF (0-3); Specific Gravity, Urine 1.013 (1.002-1.036); WBC/HPF 0-3 HPF (0-3)
[2025-04-03] MEDS ORDERED: Thiamine 100 MG TAB ONE (12:39)
[2025-04-03] MEDS ORDERED: Apixaban 5 MG TAB ONE (12:39)
[2025-04-03 12:40] LABS: Urine Culture Reflex No No
[2025-04-03 12:52] LABS: Magnesium 1.7 mg/dL (1.6-2.6)
== END 2025-04-03 17:00 | disposition home or self-care (01) ==
LOC: ERS 11:33
DX: I48.91 Unspecified atrial fibrillation (principal); F17.210 Nicotine dependence, cigarettes, uncomplicated
CPT/HCPCS: 71045; 80053; 81001; 83735; 84484; 85025; 87086; 93005

== ENCOUNTER 2025-04-07 00:55 | Observation (INO) | payer OTHER, MEDICAID ==
[2025-04-07 01:33] LABS: #Basophils 0.17 10x3/uL (0.0-0.2); #Eosinophils 0.32 10x3/uL (0.0-0.7); #Monocytes 1.24 10x3/uL (0.11-0.59); #Neutrophils 4.46 10x3/uL (1.40-6.50); %Basophils 2.1 % (0.0-1.0); %Eosinophils 3.9 % (0.0-10.0); %Lymphocytes 20.5 % (21.0-51.0); %Monocytes 15.0 % (0.0-10.0); %Neutrophils 53.8 % (42.0-75.0); Hematocrit 39.9 % (42.0-52.0); Hemoglobin 12.8 g/dL (14.0-18.0); Mean Corpuscular Hemoglobin 30.1 pg (27.0-31.0); Mean Corpuscular Volume 93.9 fL (78.0-98.0); Platelet Count 411 10x3/uL (130-400); Red Blood Cell (RBC) Count 4.25 mill/uL (4.70-6.10); White Blood Cell (WBC) Count 8.28 10x3/uL (4.8-10.8)
[2025-04-07 03:19] LABS: ALT (SGPT) 78 U/L (Less than 45); AST (SGOT) 78 U/L (11-34); Albumin 3.3 g/dL (3.1-4.5); Alkaline Phosphatase 98 U/L (40-110); Anion Gap 15 mmol/L (10-20); BUN (Urea Nitrogen) 22 mg/dL (8.4-25.7); Bilirubin, Total 1.2 mg/dL (0.3-1.2); Calc. Creatinine Clearance 0 mL/min (70-130); Calcium 8.6 mg/dL (7.8-10.44); Carbon Dioxide 19 mmol/L (23-31); Chloride 105 mmol/L (98-107); Globulin 3.5 g/dL (2.4-3.5); Glucose 104 mg/dL (80-115); Potassium 3.7 mmol/L (3.5-5.1); Sodium 135 mmol/L (136-145)
[2025-04-07] MEDS ORDERED: Ketorolac Tromethamine 30 MG (1 mL) VIAL ONE (03:48)
[2025-04-07 08:46] VITALS: BMI 23.5
[2025-04-07] MEDS ORDERED: Nitroglycerin 0.4 MG TAB (25 Tab Bottle) SL PRN (10:00)
[2025-04-07] MEDS ORDERED: Acetaminophen 325 MG TAB PO PRN (10:01)
[2025-04-07] MEDS ORDERED: Bisacodyl 10 MG SUPP PR PRN (10:01)
[2025-04-07] MEDS ORDERED: Ondansetron PF 4 MG/2 ML Vial IVP PRN (10:01)
[2025-04-07] MEDS ORDERED: Calcium Carbonate 500 MG ChewTAB PO PRN (10:01)
[2025-04-07] MEDS ORDERED: Senokot S 8.6-50 MG TAB PO PRN (10:01)
[2025-04-07] MEDS ORDERED: Melatonin 3 MG TAB PO PRN (10:01)
[2025-04-07 10:46] VITALS: BP 115/74
[2025-04-07] MEDS: Digoxin 0.125 MG TAB PO SCH (10:47)
[2025-04-07] MEDS: Apixaban 5 MG TAB PO SCH (10:48)
[2025-04-07] MEDS: Thiamine 100 MG TAB PO SCH (10:48)
[2025-04-07] MEDS: Spironolactone 25 MG TAB PO SCH (10:49)
[2025-04-07 10:56] LABS: INR-International Normal Ratio 1.1; Prothrombin Time 14.5 sec (12.0-14.7)
[2025-04-07 10:57] LABS: PTT 31.4 sec (22.9-36.1)
[2025-04-07 10:59] LABS: D-Dimer Test 1.31 mcg/mL (0.27-0.43)
[2025-04-07 11:05] LABS: Digoxin 0.26 ng/mL (0.8-2.0)
[2025-04-07 11:22] VITALS: TEMP 97.7
[2025-04-07] MEDS ORDERED: Albuterol 2.5 MG (3 mL) NEB NEB PRN (12:38)
[2025-04-07 12:41] LABS: Cocaine Metabolite Screen Negative (Negative); THC/Cannabinoid Screen PRELIM POSITIVE (Negative); Tricyclic Screen Negative (Negative)
[2025-04-07] MEDS ORDERED: Pantoprazole 40 MG DR.TAB PO SCH (14:00)
[2025-04-07] MEDS ORDERED: Iopamidol-370 76% 500 ML MDV (1 ML CHARGE) ONE (15:54)
[2025-04-07] MEDS ORDERED: Enoxaparin 80 MG (0.8 mL) SYRINGE SC SCH ×2 (21:00)
[2025-04-07] MEDS ORDERED: Enoxaparin 60 MG (0.6 mL) SYRINGE SC SCH (21:00)
[2025-04-07] MEDS ORDERED: Apixaban 5 MG TAB PO SCH (21:00)
[2025-04-08] MEDS ORDERED: Spironolactone 25 MG TAB PO SCH (08:00)
[2025-04-08] MEDS ORDERED: Folic Acid 1 MG TAB PO SCH (09:00)
[2025-04-08] MEDS ORDERED: Multivit, Therapeutic 1 TAB PO SCH (09:00)
[2025-04-08] MEDS ORDERED: Digoxin 0.125 MG TAB PO SCH (09:00)
[2025-04-08] MEDS ORDERED: Pantoprazole 40 MG DR.TAB PO SCH (09:00)
== END 2025-04-07 16:35 | disposition left against medical advice (07) ==
LOC: ERS 00:55 → 2NO 06:08
PROVIDERS: ADMIT Internal Medicine; ATTEND Internal Medicine
DX: R07.89 Other chest pain (principal); R06.02 Shortness of breath; I48.0 Paroxysmal atrial fibrillation; I11.0 Hypertensive heart disease with heart failure; I50.20 Unspecified systolic (congestive) heart failure; F15.10 Other stimulant abuse, uncomplicated; Z79.01 Long term (current) use of anticoagulants; Z79.899 Other long term (current) drug therapy
CPT/HCPCS: 71045; 71275; 80053; 80162; 80306; 80307; 83880; 84484 ×2; 85025; 85379; 85610; 85730; 93005; 94760; 96374; 99285; G0378 ×2; J1885; Q9967; 36415

== ENCOUNTER 2025-04-10 23:35 | Observation (INO) | payer OTHER, MEDICAID ==
[2025-04-11 00:56] LABS: #Basophils 0.09 10x3/uL (0.0-0.2); #Eosinophils 0.35 10x3/uL (0.0-0.7); #Monocytes 0.93 10x3/uL (0.11-0.59); #Neutrophils 5.09 10x3/uL (1.40-6.50); %Basophils 1.1 % (0.0-1.0); %Eosinophils 4.2 % (0.0-10.0); %Lymphocytes 18.5 % (21.0-51.0); %Monocytes 11.2 % (0.0-10.0); %Neutrophils 61.6 % (42.0-75.0); Hematocrit 39.5 % (42.0-52.0); Hemoglobin 12.9 g/dL (14.0-18.0); Mean Corpuscular Hemoglobin 30.3 pg (27.0-31.0); Mean Corpuscular Volume 92.7 fL (78.0-98.0); Platelet Count 361 10x3/uL (130-400); Red Blood Cell (RBC) Count 4.26 mill/uL (4.70-6.10); White Blood Cell (WBC) Count 8.27 10x3/uL (4.8-10.8)
[2025-04-11 01:16] LABS: ALT (SGPT) 48 U/L (Less than 45); AST (SGOT) 52 U/L (11-34); Albumin 3.3 g/dL (3.1-4.5); Alkaline Phosphatase 99 U/L (40-110); Anion Gap 14 mmol/L (10-20); BUN (Urea Nitrogen) 15 mg/dL (8.4-25.7); Bilirubin, Total 1.1 mg/dL (0.3-1.2); Calc. Creatinine Clearance 0 mL/min (70-130); Calcium 9.0 mg/dL (7.8-10.44); Carbon Dioxide 18 mmol/L (23-31); Chloride 107 mmol/L (98-107); Globulin 3.4 g/dL (2.4-3.5); Glucose 84 mg/dL (80-115); Potassium 3.8 mmol/L (3.5-5.1); Sodium 135 mmol/L (136-145)
[2025-04-11] MEDS ORDERED: Electrolyte Replacement Protocol 1 EACH FS PRN (03:48)
[2025-04-11] MEDS ORDERED: Ketorolac Tromethamine 30 MG (1 mL) VIAL ONE (03:55)
[2025-04-11] MEDS ORDERED: Furosemide 20 MG (2 mL) VIAL ONE (03:55)
[2025-04-11] MEDS ORDERED: dilTIAZem 30 MG TAB PO PRN (04:24)
[2025-04-11] MEDS ORDERED: Senokot S 8.6-50 MG TAB PO PRN (04:28)
[2025-04-11] MEDS ORDERED: Calcium Carbonate 500 MG ChewTAB PO PRN (04:28)
[2025-04-11] MEDS ORDERED: Acetaminophen 325 MG TAB PO PRN (04:28)
[2025-04-11] MEDS ORDERED: Communication Order-Pharmacy FS ONE (04:30)
[2025-04-11] MEDS ORDERED: Enoxaparin 80 MG (0.8 mL) SYRINGE ONE (05:41)
[2025-04-11] MEDS: Enoxaparin 80 MG (0.8 mL) SYRINGE SC SCH (05:49)
[2025-04-11 06:05] LABS: Magnesium 1.6 mg/dL (1.6-2.6)
[2025-04-11 08:37] VITALS: BMI 22.8
[2025-04-11] MEDS: Thiamine 100 MG TAB PO SCH (08:55)
[2025-04-11] MEDS: Digoxin 0.125 MG TAB PO SCH (08:55)
[2025-04-11] MEDS: Multivit, Therapeutic 1 TAB PO SCH (08:55)
[2025-04-11] MEDS: Folic Acid 1 MG TAB PO SCH (08:55)
[2025-04-11] MEDS: Famotidine 20 MG TAB PO SCH (08:55)
[2025-04-11 10:46] LABS: Cocaine Metabolite Screen Negative (Negative); THC/Cannabinoid Screen Negative (Negative); Tricyclic Screen Negative (Negative)
[2025-04-11] MEDS: Furosemide 20 MG (2 mL) VIAL SLOW IVP SCH (13:32)
[2025-04-11 16:19] VITALS: BP 115/76; TEMP 97.8
[2025-04-11 18:43] LABS: Potassium 3.5 mmol/L (3.5-5.1)
== END 2025-04-11 20:30 | disposition home or self-care (01) ==
LOC: ERS 23:35 → ERHOLD 04-11 03:53 → OBS 04-11 08:18
PROVIDERS: ADMIT Internal Medicine; ATTEND Internal Medicine
DX: I48.91 Unspecified atrial fibrillation (principal); I11.0 Hypertensive heart disease with heart failure; I50.23 Acute on chronic systolic (congestive) heart failure; E87.6 Hypokalemia; F19.10 Other psychoactive substance abuse, uncomplicated; F17.210 Nicotine dependence, cigarettes, uncomplicated; Z79.01 Long term (current) use of anticoagulants; Z79.899 Other long term (current) drug therapy
CPT/HCPCS: 71045; 80053; 80306; 83735; 83880; 84132; 84484 ×2; 85025; 93005; J1650; J1885; J1940; 36415; 96372; 96374; 96375; 96376; G0378

== ENCOUNTER 2025-04-21 09:08 | Inpatient (IN) | payer OTHER, MEDICAID ==
[2025-04-21 09:52] LABS: #Basophils 0.13 10x3/uL (0.0-0.2); #Eosinophils 0.47 10x3/uL (0.0-0.7); #Monocytes 0.85 10x3/uL (0.11-0.59); #Neutrophils 4.91 10x3/uL (1.40-6.50); %Basophils 1.5 % (0.0-1.0); %Eosinophils 5.5 % (0.0-10.0); %Lymphocytes 21.7 % (21.0-51.0); %Monocytes 9.9 % (0.0-10.0); %Neutrophils 57.0 % (42.0-75.0); Hematocrit 47.5 % (42.0-52.0); Hemoglobin 15.7 g/dL (14.0-18.0); Mean Corpuscular Hemoglobin 30.0 pg (27.0-31.0); Mean Corpuscular Volume 90.6 fL (78.0-98.0); Platelet Count 285 10x3/uL (130-400); Red Blood Cell (RBC) Count 5.24 mill/uL (4.70-6.10); White Blood Cell (WBC) Count 8.61 10x3/uL (4.8-10.8)
[2025-04-21 10:12] LABS: ALT (SGPT) 36 U/L (Less than 45); AST (SGOT) 53 U/L (11-34); Albumin 3.5 g/dL (3.1-4.5); Alkaline Phosphatase 92 U/L (40-110); Anion Gap 18 mmol/L (10-20); BUN (Urea Nitrogen) 23 mg/dL (8.4-25.7); Bilirubin, Total 0.9 mg/dL (0.3-1.2); Calc. Creatinine Clearance 0 mL/min (70-130); Calcium 9.0 mg/dL (7.8-10.44); Carbon Dioxide 20 mmol/L (23-31); Chloride 106 mmol/L (98-107); Globulin 3.5 g/dL (2.4-3.5); Glucose 103 mg/dL (80-115); Potassium 4.1 mmol/L (3.5-5.1); Sodium 140 mmol/L (136-145)
[2025-04-21 10:31] LABS: Cocaine Metabolite Screen Negative (Negative); THC/Cannabinoid Screen Negative (Negative); Tricyclic Screen Negative (Negative)
[2025-04-21] MEDS ORDERED: Furosemide 40 MG (4 mL) VIAL ONE (10:39)
[2025-04-21] MEDS ORDERED: Senokot S 8.6-50 MG TAB PO PRN (10:46)
[2025-04-21] MEDS ORDERED: Nitroglycerin 0.4 MG TAB (25 Tab Bottle) SL PRN (10:46)
[2025-04-21] MEDS ORDERED: Ondansetron PF 4 MG/2 ML Vial IVP PRN (10:46)
[2025-04-21 12:38] VITALS: BMI 23.8
[2025-04-21] MEDS: Thiamine 100 MG TAB PO SCH (12:41)
[2025-04-21] MEDS: Digoxin 0.125 MG TAB PO SCH (12:48)
[2025-04-21 18:28] LABS: Digoxin Less than 0.19 ng/mL (0.8-2.0)
[2025-04-21] MEDS: Acetaminophen 325 MG TAB PO PRN (19:15)
[2025-04-21] MEDS: Apixaban 5 MG TAB PO SCH (20:30)
[2025-04-21] MEDS: Famotidine 20 MG TAB PO SCH (20:30)
[2025-04-22 05:38] LABS: Anion Gap 14 mmol/L (10-20); BUN (Urea Nitrogen) 26 mg/dL (8.4-25.7); Calc. Creatinine Clearance 96 mL/min (70-130); Calcium 8.8 mg/dL (7.8-10.44); Carbon Dioxide 23 mmol/L (23-31); Chloride 106 mmol/L (98-107); Glucose 93 mg/dL (80-115); Potassium 3.9 mmol/L (3.5-5.1); Sodium 139 mmol/L (136-145)
[2025-04-22] MEDS: Multivit, Therapeutic 1 TAB PO SCH (09:05)
[2025-04-22] MEDS: PNEUMOC 20-VAL CONJ-DIP CRM/PF 0.5 ML SYRINGE IM ONE (09:05)
[2025-04-22] MEDS: Spironolactone 25 MG TAB PO SCH (09:05)
[2025-04-22] MEDS: Pantoprazole 40 MG DR.TAB PO SCH (09:05)
[2025-04-22] MEDS: Aspirin Chewable 81 MG TAB PO SCH (09:05)
[2025-04-22] MEDS: Folic Acid 1 MG TAB PO SCH (09:05)
[2025-04-22] MEDS: Digoxin 0.125 MG TAB PO SCH (09:05)
[2025-04-22 09:09] LABS: Magnesium 1.8 mg/dL (1.6-2.6)
[2025-04-22 16:07] VITALS: BMI 23.8
[2025-04-22] MEDS: Magnesium 2 GM/50 ML(in water) 2 GM in Premix 1 BAG IVPB SCH (16:14)
[2025-04-23 05:57] LABS: Anion Gap 10 mmol/L (10-20); BUN (Urea Nitrogen) 24 mg/dL (8.4-25.7); Calc. Creatinine Clearance 97 mL/min (70-130); Calcium 8.9 mg/dL (7.8-10.44); Carbon Dioxide 25 mmol/L (23-31); Chloride 106 mmol/L (98-107); Glucose 97 mg/dL (80-115); Magnesium 2.0 mg/dL (1.6-2.6); Potassium 4.2 mmol/L (3.5-5.1); Sodium 137 mmol/L (136-145)
[2025-04-23 12:12] VITALS: BP 113/66; TEMP 97.6
== END 2025-04-23 14:03 | disposition home or self-care (01) | DRG 309 ==
LOC: ERS 09:08 → ERHOLD 10:51 → OBS 12:35 → OBSVTOIN 04-22 16:43
PROVIDERS: ADMIT Family Medicine; ATTEND Hospitalist
DX: I48.0 Paroxysmal atrial fibrillation (principal); I50.22 Chronic systolic (congestive) heart failure; I11.0 Hypertensive heart disease with heart failure; F15.90 Other stimulant use, unspecified, uncomplicated; E11.9 Type 2 diabetes mellitus without complications; F17.210 Nicotine dependence, cigarettes, uncomplicated; Z91.148 Patient's other noncompliance with medication regimen for other reason; Z79.899 Other long term (current) drug therapy
CPT/HCPCS: 36415; 71045; 80048; 80053; 80162; 80306; 83735; 83880; 84484; 85025; 93005; 94760; 96374; 96375; 97139; G0378; J1940; J2060; J3475

== ENCOUNTER 2025-04-27 09:15 | Emergency (ER) | payer OTHER, MEDICAID ==
[2025-04-27 10:13] LABS: #Basophils 0.12 10x3/uL (0.0-0.2); #Eosinophils 0.66 10x3/uL (0.0-0.7); #Monocytes 0.94 10x3/uL (0.11-0.59); #Neutrophils 5.51 10x3/uL (1.40-6.50); %Basophils 1.3 % (0.0-1.0); %Eosinophils 7.1 % (0.0-10.0); %Lymphocytes 17.8 % (21.0-51.0); %Monocytes 10.2 % (0.0-10.0); %Neutrophils 59.5 % (42.0-75.0); Hematocrit 44.6 % (42.0-52.0); Hemoglobin 14.9 g/dL (14.0-18.0); Mean Corpuscular Hemoglobin 29.7 pg (27.0-31.0); Mean Corpuscular Volume 89.0 fL (78.0-98.0); Platelet Count 241 10x3/uL (130-400); Red Blood Cell (RBC) Count 5.01 mill/uL (4.70-6.10); White Blood Cell (WBC) Count 9.26 10x3/uL (4.8-10.8)
[2025-04-27 10:28] LABS: INR-International Normal Ratio 1.1; PTT 32.8 sec (22.9-36.1); Prothrombin Time 14.5 sec (12.0-14.7)
[2025-04-27] MEDS ORDERED: Aspirin Chewable 81 MG TAB ONE (10:34)
[2025-04-27 10:44] LABS: Magnesium 2.0 mg/dL (1.6-2.6)
[2025-04-27 10:45] LABS: Acetaminophen Less than 10 mcg/mL (Less than 10); Salicylate Less than 8.0 mg/dL (Less than 8.0)
[2025-04-27 10:46] LABS: ALT (SGPT) 46 U/L (Less than 45); AST (SGOT) 64 U/L (11-34); Albumin 3.6 g/dL (3.1-4.5); Alkaline Phosphatase 84 U/L (40-110); Anion Gap 16 mmol/L (10-20); BUN (Urea Nitrogen) 20 mg/dL (8.4-25.7); Bilirubin, Total 0.8 mg/dL (0.3-1.2); Calc. Creatinine Clearance 0 mL/min (70-130); Calcium 9.3 mg/dL (7.8-10.44); Carbon Dioxide 22 mmol/L (23-31); Chloride 104 mmol/L (98-107); Globulin 3.4 g/dL (2.4-3.5); Glucose 90 mg/dL (80-115); Potassium 4.2 mmol/L (3.5-5.1); Sodium 138 mmol/L (136-145)
[2025-04-27 11:23] LABS: Bacteria/HPF None Seen HPF (None Seen); CAUTI Indications for Culture Pelvic or flank pain; Glucose, Urine (Dipstick) >=1000 mg/dL (Negative); Leukocyte Negative Leu/uL (Negative); Protein, Urine (Dipstick) Negative (Neg-Trace); RBC/HPF 0-3 HPF (0-3); Specific Gravity, Urine 1.018 (1.002-1.036); WBC/HPF None Seen HPF (0-3)
[2025-04-27 11:24] LABS: Urine Culture Reflex No No
[2025-04-27 11:32] LABS: Cocaine Metabolite Screen Negative (Negative); THC/Cannabinoid Screen Negative (Negative); Tricyclic Screen Negative (Negative)
== END 2025-04-27 11:38 | disposition home or self-care (01) ==
LOC: ERS 09:15
DX: R06.00 Dyspnea, unspecified (principal); Z55.6 Problems related to health literacy
CPT/HCPCS: 71045; 80053; 80306; 80307; 81001; 83735; 83880; 84484; 85025; 85610; 85730; 93005; 94760